=== PATIENT | male | born 1980 | race Caucasian/White ===

== ENCOUNTER 2017-05-27 17:56 | Emergency (ER) | payer BC ==
[~2017-05-27] VITALS: Ht 162.6 cm; Wt 97.1 kg
[~2017-05-27 17:56] MED LIST: CLARITIN10 MG PO; FLONASE NASAL S16 GM NS; PRILOSEC 20MG20 MG PO; PROTONIX40 MG PO
[2017-05-27 17:59] VITALS: BP 142/84; TEMP 98.5
[2017-05-27] MEDS ORDERED: DESYREL 50MG50 MG PO (18:02)
[2017-05-27] MEDS ORDERED: PROTONIX 40MG T40 MG PO (18:03)
[2017-05-27 19:56] VITALS: PULSE 84
== END 2017-05-27 19:58 | disposition home or self-care (01) ==
LOC: COL.ER 17:56
DX: S61.255A Open bite of left ring finger without damage to nail, initial encounter (principal); K21.9 Gastro-esophageal reflux disease without esophagitis; Z23 Encounter for immunization; W55.81XA Bitten by other mammals, initial encounter

== ENCOUNTER 2017-05-30 07:40 | Outpatient (RCR) | payer BC ==
[~2017-05-30 07:40] MED LIST changes: +DESYREL 50MG50 MG PO; +PROTONIX 40MG T40 MG PO
[2017-06-12 07:23] VITALS: BP 150/91; PULSE 98; TEMP 98.9
[2017-08-21] MEDS ORDERED: LUNESTA2 MG PO (20:27)
[2017-08-21] MEDS ORDERED: PREDNISONE20 MG PO ×2 (21:05)
[2017-08-21] MEDS ORDERED: MEDROL 4MG DOSPA4 MG PO (21:29)
== END 2017-09-01 ==
LOC: COL.ER
DX: Z20.3 Contact with and (suspected) exposure to rabies (principal)

== ENCOUNTER 2017-08-21 20:17 | Emergency (ER) | payer BC ==
[~2017-08-21] VITALS: Ht 162.6 cm; Wt 95.5 kg
[2017-08-21 20:23] VITALS: BP 149/96; TEMP 98.9
[2017-08-21] MEDS ORDERED: LUNESTA2 MG PO (20:27)
[2017-08-21] MEDS ORDERED: PREDNISONE20 MG PO ×2 (21:05)
[2017-08-21] MEDS ORDERED: MEDROL 4MG DOSPA4 MG PO (21:29)
[2017-08-21 21:30] VITALS: PULSE 92
== END 2017-08-21 21:30 | disposition home or self-care (01) ==
LOC: COL.ER 20:17
DX: L50.9 Urticaria, unspecified (principal); K21.9 Gastro-esophageal reflux disease without esophagitis
CPT/HCPCS: J2930

== ENCOUNTER 2017-09-12 09:01 | Day surgery (SDC) | payer BC ==
[~2017-09-12] VITALS: Ht 162.6 cm; Wt 98.4 kg
[~2017-09-12 09:01] MED LIST changes: +LUNESTA2 MG PO; +MEDROL 4MG DOSPA4 MG PO; +PREDNISONE20 MG PO
[2017-09-12 09:16] VITALS: BP 145/93; PULSE 75; TEMP 97.8
[2017-09-12 10:45] VITALS: BP 110/86; PULSE 75; TEMP 97.6
[2017-09-12 10:56] VITALS: BP 121/83; PULSE 68
[2017-09-12 11:15] VITALS: BP 120/80; PULSE 70
[2017-09-12 11:30] VITALS: BP 118/91; PULSE 72
[2017-09-12 12:45] VITALS: BP 116/76; PULSE 77
== END 2017-09-12 11:59 | disposition home or self-care (01) ==
LOC: SDCO 09:01
DX: K57.30 Diverticulosis of large intestine without perforation or abscess without bleeding (principal); R19.7 Diarrhea, unspecified; R14.0 Abdominal distension (gaseous); K21.9 Gastro-esophageal reflux disease without esophagitis; G47.33 Obstructive sleep apnea (adult) (pediatric); E66.9 Obesity, unspecified; Z68.33 Body mass index [BMI] 33.0-33.9, adult
CPT/HCPCS: OP; J2704; J7030

== ENCOUNTER 2018-10-30 10:35 | Day surgery (SDC) | payer BC ==
[~2018-10-30] VITALS: Ht 162.6 cm; Wt 90.8 kg
[2018-10-30 11:03] VITALS: BP 121/84; PULSE 76; TEMP 98.3
[2018-10-30] MEDS ORDERED: TOPROL XL 25MG25 MG PO (11:09)
[2018-10-30] MEDS ORDERED: VALIUM 10MG10 MG/TAB PO (11:10)
[2018-10-30 14:00] VITALS: BP 116/74; PULSE 69; TEMP 97.5
--- NOTE | 2018-10-30 14:00 | NUR ---
pt to bay [facility] via cart from endo room, pt walked to chair, call light in reach, in room, pt took drink and muffin
[2018-10-30 14:15] VITALS: BP 117/82; PULSE 76
[2018-10-30 14:30] VITALS: BP 120/78; PULSE 78
[2018-10-30 14:45] VITALS: BP 123/67; PULSE 72
--- NOTE | 2018-10-30 14:45 | NUR ---
iv d'cd intact, pt up in room dressed, Dr Panchal into see pt and
--- NOTE | 2018-10-30 15:20 | NUR ---
DISCHARGE INST. GIVEN TO PT AND ON ACTIVITY, PRECAUTIONS AND FOLLOWUP FOR TEST RESULTS, PT DISCHARGED VIA W/C TO CAR WITH
== END 2018-10-30 15:20 | disposition home or self-care (01) ==
LOC: SDCO 10:35
DX: K21.9 Gastro-esophageal reflux disease without esophagitis (principal); K44.9 Diaphragmatic hernia without obstruction or gangrene; R19.7 Diarrhea, unspecified; R63.4 Abnormal weight loss; K58.0 Irritable bowel syndrome with diarrhea; K57.30 Diverticulosis of large intestine without perforation or abscess without bleeding; K58.9 Irritable bowel syndrome, unspecified; Z79.899 Other long term (current) drug therapy; I10 Essential (primary) hypertension; G47.33 Obstructive sleep apnea (adult) (pediatric)
CPT/HCPCS: J2704

== ENCOUNTER 2019-06-05 11:51 | Emergency (ER) | payer BC ==
[~2019-06-05] VITALS: Ht 160 cm; Wt 97.3 kg
[~2019-06-05 11:51] MED LIST changes: +TOPROL XL 25MG25 MG PO; +VALIUM 10MG10 MG/TAB PO
[2019-06-05 12:00] VITALS: TEMP 99.6
[2019-06-05 12:40] LABS: BASO % 0.2 % (0.0-2.0); EOS # 0.1 (0.0-0.7); EOS % 0.8 % (0-4.0); GRAN # 8.9 (1.4-6.5); GRAN % 79.1 % (42.2-75.2); HEMATOCRIT 42.5 % (42.0-52.0); HEMOGLOBIN 14.6 g/dl (13.5-18.0); LYMPH # 1.1 (1.2-3.4); LYMPH % 10.1 % (20.0-51.0); MEAN CELL VOLUME 91 fl (80.0-100.0); MEAN CORPUSCULAR HEMOGLOBIN 31 pg (27.0-31.0); MEAN CORPUSCULAR HGB CONC 34 g/dl (33.0-37.0); MEAN PLATELET VOLUME 9.1 fl (7.4-10.4); MONO # 1.1 (0.1-0.6); MONO % 9.4 % (1.7-9.3); PLATELET COUNT 232 K/mm3 (130-400); RED BLOOD COUNT 4.65 M/mm3 (4.20-5.60); REDCELL DISTRIBUTION WIDTH-CV 11.6 % (11.5-14.5)
[2019-06-05 12:53] LABS: ALBUMIN 4.2 gm/dL (3.5-5.0); C-REACTIVE PROTEIN 3.4 mg/dL (0.0-0.9); CALCIUM 9.3 mg/dL (8.4-10.2); CREATININE, serum 0.87 (0.66-1.25); POTASSIUM 4.1 mmol/L (3.4-5.0); TOTAL PROTEIN 7.1 gm/dL (6.4-8.2)
[2019-06-05 13:24] LABS: COLLECTION METHOD CLEAN CATCH
[2019-06-05 13:40] LABS: MUCOUS Present /lpf; PH 7 (5-8); SQUAMOUS EPITHELIAL None Seen /hpf; URINE APPEARANCE Clear; URINE BACTERIA None Seen /hpf; URINE BILIRUBIN Negative (NEGATIVE); URINE BLOOD Negative (NEGATIVE); URINE COLOR Yellow; URINE GLUCOSE Negative (NEGATIVE); URINE KETONE Negative (NEGATIVE); URINE LEUKOCYTE ESTERASE Negative (NEGATIVE); URINE NITRATE Negative (NEGATIVE); URINE PROTEIN(semi-quant) Negative (NEGATIVE); URINE RBC 0-2 /hpf; URINE UROBILINOGEN Negative (NEGATIVE)
[2019-06-05] MEDS ORDERED: CIPRO 500MG TA500 MG PO (14:22)
[2019-06-05] MEDS ORDERED: FLAGYL500 MG PO (14:22)
[2019-06-05 14:38] VITALS: BP 108/57; PULSE 89
== END 2019-06-05 14:45 | disposition home or self-care (01) ==
LOC: COL.ER 11:51
PROVIDERS: Nurse Practitioner
DX: K57.92 Diverticulitis of intestine, part unspecified, without perforation or abscess without bleeding (principal); I10 Essential (primary) hypertension; K21.9 Gastro-esophageal reflux disease without esophagitis; K58.9 Irritable bowel syndrome, unspecified
CPT/HCPCS: J1885; J7030; Q9967

== ENCOUNTER 2019-11-30 08:06 | Emergency (ER) | payer BC ==
[~2019-11-30] VITALS: Ht 160 cm; Wt 100.0 kg
[~2019-11-30 08:06] MED LIST changes: +CIPRO 500MG TA500 MG PO; +FLAGYL500 MG PO
[2019-11-30 08:19] VITALS: BP 149/89; TEMP 98.3
[2019-11-30 09:40] VITALS: PULSE 72
== END 2019-11-30 09:40 | disposition home or self-care (01) ==
LOC: COL.ER 08:06
DX: T78.40XA Allergy, unspecified, initial encounter (principal); L50.9 Urticaria, unspecified; I10 Essential (primary) hypertension; K57.90 Diverticulosis of intestine, part unspecified, without perforation or abscess without bleeding; Z79.899 Other long term (current) drug therapy
CPT/HCPCS: J2930

== ENCOUNTER 2024-03-08 12:11 | Emergency (ER) | payer OTHER ==
[~2024-03-08] VITALS: Ht 162.6 cm; Wt 106.8 kg
[2024-03-08 12:16] VITALS: TEMP 98.8
[2024-03-08 13:31] LABS: ALANINE AMINOTRANSFERASE 38 U/L (0-55); ALBUMIN 4.6 g/dL (3.5-5.0); ALKALINE PHOSPHATASE 64 U/L (40-150); ANION GAP 12 mmol/L (7-16); AST,SGOT 21 U/L (5-34); BILIRUBIN,TOTAL 0.5 mg/dL (0.2-1.2); BLOOD UREA NITROGEN 17 mg/dL (9-21); CALCIUM 9.7 mg/dL (8.4-10.2); CHLORIDE 106 mEq/L (98-107); CREATININE, serum 1.06 mg/dL (0.72-1.25); GLUCOSE 93 mg/dL (70-99); POTASSIUM 4.3 mEq/L (3.5-4.5); SODIUM 139 mEq/L (136-145); TOTAL PROTEIN 7.7 g/dl (6.2-8.1)
[2024-03-08 13:34] LABS: BASO # 0.1 K/mm3 (0.0-0.2); BASO % 0.8 % (0.0-2.0); EOS # 0.2 K/mm3 (0.0-0.7); EOS % 2.2 % (0.0-4.0); GRAN # 4.1 K/mm3 (1.4-6.5); GRAN % 56.5 % (42.2-75.2); HEMATOCRIT 48.5 % (42.0-52.0); HEMOGLOBIN 16.3 g/dl (13.5-18.0); LYMPH # 2.2 K/mm3 (1.2-3.4); LYMPH % 29.7 % (20.0-51.0); MEAN CELL VOLUME 91 fl (80.0-100.0); MEAN CORPUSCULAR HEMOGLOBIN 31 pg (27-31); MEAN CORPUSCULAR HGB CONC 34 g/dl (33.0-37.0); MEAN PLATELET VOLUME 10.2 fl (7.4-10.4); MONO # 0.8 K/mm3 (0.1-0.6); MONO % 10.5 % (1.7-9.3); RED BLOOD COUNT 5.33 M/mm3 (4.20-5.60); REDCELL DISTRIBUTION WIDTH-CV 11.6 % (11.5-14.5)
[2024-03-08 13:37] LABS: PLATELET COUNT 296 K/mm3 (130-400)
[2024-03-08 13:51] LABS: TROPONIN-I < 0.010 ng/mL (0.00-0.033)
[2024-03-08 14:15] VITALS: O2SAT 95
[2024-03-08 16:19] VITALS: BP 124/84; PULSE 75
== END 2024-03-08 16:19 | disposition home or self-care (01) ==
LOC: COL.ER 12:11
PROVIDERS: Personal Emergency Response Attendant
DX: R00.2 Palpitations (principal); R42 Dizziness and giddiness; Z79.899 Other long term (current) drug therapy

== ENCOUNTER 2024-03-19 10:50 | Emergency (ER) | payer OTHER ==
[~2024-03-19] VITALS: Ht 162.6 cm; Wt 106.8 kg
[2024-03-19 10:57] VITALS: TEMP 98.1
[2024-03-19 13:41] LABS: BASO % 0.6 % (0.0-2.0); EOS # 0.2 K/mm3 (0.0-0.7); EOS % 2.5 % (0.0-4.0); GRAN # 4.3 K/mm3 (1.4-6.5); GRAN % 60.4 % (42.2-75.2); HEMATOCRIT 48.9 % (42.0-52.0); HEMOGLOBIN 16.8 g/dl (13.5-18.0); LYMPH # 1.8 K/mm3 (1.2-3.4); LYMPH % 25.4 % (20.0-51.0); MEAN CELL VOLUME 90 fl (80.0-100.0); MEAN CORPUSCULAR HEMOGLOBIN 31 pg (27-31); MEAN CORPUSCULAR HGB CONC 34 g/dl (33.0-37.0); MEAN PLATELET VOLUME 9.8 fl (7.4-10.4); MONO # 0.8 K/mm3 (0.1-0.6); MONO % 10.7 % (1.7-9.3); PLATELET COUNT 314 K/mm3 (130-400); RED BLOOD COUNT 5.42 M/mm3 (4.20-5.60); REDCELL DISTRIBUTION WIDTH-CV 11.5 % (11.5-14.5)
[2024-03-19 13:53] LABS: ALANINE AMINOTRANSFERASE 41 U/L (0-55); ALBUMIN 4.7 g/dL (3.5-5.0); ALKALINE PHOSPHATASE 65 U/L (40-150); ANION GAP 10 mmol/L (7-16); AST,SGOT 23 U/L (5-34); BILIRUBIN,TOTAL 0.6 mg/dL (0.2-1.2); BLOOD UREA NITROGEN 17 mg/dL (9-21); CALCIUM 9.8 mg/dL (8.4-10.2); CHLORIDE 105 mEq/L (98-107); GLUCOSE 99 mg/dL (70-99); POTASSIUM 4.1 mEq/L (3.5-4.5); SODIUM 139 mEq/L (136-145)
[2024-03-19 13:58] LABS: TROPONIN-I < 0.010 ng/mL (0.00-0.033)
[2024-03-19 14:20] VITALS: BP 109/67; PULSE 77
== END 2024-03-19 14:20 | disposition home or self-care (01) ==
LOC: COL.ER 10:50
PROVIDERS: Nurse Practitioner
DX: R07.9 Chest pain, unspecified (principal)

== ENCOUNTER → 2024-03-31 | Outpatient (CLI) | payer OTHER | LOC: COL.VAS 08:57 | DX: R00.2 Palpitations (principal) ==

== ENCOUNTER 2024-04-28 17:16 | Emergency (ER) | payer OTHER ==
[~2024-04-28] VITALS: Ht 162.6 cm; Wt 106.8 kg
[2024-04-28 17:19] VITALS: TEMP 98.3
[2024-04-28 19:08] LABS: BASO # 0.1 K/mm3 (0.0-0.2); BASO % 0.6 % (0.0-2.0); EOS # 0.2 K/mm3 (0.0-0.7); EOS % 2.9 % (0.0-4.0); GRAN # 5.5 K/mm3 (1.4-6.5); GRAN % 66.7 % (42.2-75.2); HEMATOCRIT 46.7 % (42.0-52.0); HEMOGLOBIN 16.1 g/dl (13.5-18.0); LYMPH # 1.7 K/mm3 (1.2-3.4); LYMPH % 21.2 % (20.0-51.0); MEAN CELL VOLUME 90 fl (80.0-100.0); MEAN CORPUSCULAR HEMOGLOBIN 31 pg (27-31); MEAN CORPUSCULAR HGB CONC 35 g/dl (33.0-37.0); MEAN PLATELET VOLUME 9.4 fl (7.4-10.4); MONO # 0.7 K/mm3 (0.1-0.6); MONO % 8.2 % (1.7-9.3); PLATELET COUNT 267 K/mm3 (130-400); RED BLOOD COUNT 5.21 M/mm3 (4.20-5.60); REDCELL DISTRIBUTION WIDTH-CV 11.5 % (11.5-14.5)
[2024-04-28 19:27] LABS: ALANINE AMINOTRANSFERASE 28 U/L (0-55); ALBUMIN 4.3 g/dL (3.5-5.0); ALKALINE PHOSPHATASE 65 U/L (40-150); ANION GAP 11 mmol/L (7-16); AST,SGOT 17 U/L (5-34); BILIRUBIN,TOTAL 0.5 mg/dL (0.2-1.2); BLOOD UREA NITROGEN 15 mg/dL (9-21); CALCIUM 9.9 mg/dL (8.4-10.2); CHLORIDE 107 mEq/L (98-107); CREATININE, serum 1.04 mg/dL (0.72-1.25); GLUCOSE 98 mg/dL (70-99); LIPASE 31 U/L (8-78); POTASSIUM 3.9 mEq/L (3.5-4.5); SODIUM 141 mEq/L (136-145); TOTAL PROTEIN 7.4 g/dl (6.2-8.1)
[2024-04-28 19:33] LABS: TROPONIN-I < 0.010 ng/mL (0.00-0.033)
[2024-04-28] MEDS ORDERED: Iohexol 300 - 100 ML VIAL IV ONE (20:24)
[2024-04-28] MEDS ORDERED: NS 100 ML IV ONE (20:25)
[2024-04-28] MEDS ORDERED: Ketorolac 30 MG/ML VIAL IV ONE (21:00)
[2024-04-28 21:40] VITALS: BP 128/81; PULSE 68
== END 2024-04-28 21:40 | disposition home or self-care (01) ==
LOC: COL.ER 17:16
PROVIDERS: Nurse Practitioner Primary Care
DX: R07.9 Chest pain, unspecified (principal); Z79.82 Long term (current) use of aspirin
CPT/HCPCS: J1885; Q9967

== ENCOUNTER 2024-05-11 09:09 | Day surgery (SDC) | payer OTHER ==
[~2024-05-11] VITALS: Ht 162.6 cm; Wt 107.1 kg
[2024-05-11] VITALS (12 sets, daily range): BP systolic 135–177; BP diastolic 79–116; PULSE 70–85; TEMP 98.3
[2024-05-11] MEDS ORDERED: CARDIZEM120 MG PO (09:28)
[2024-05-11] MEDS ORDERED: 1/2 NS 1,000 ML IV SCH (09:30)
[2024-05-11 10:09] LABS: HEMATOCRIT 44.9 % (42.0-52.0); HEMOGLOBIN 15.9 g/dl (13.5-18.0); MEAN CELL VOLUME 88 fl (80.0-100.0); MEAN CORPUSCULAR HEMOGLOBIN 31 pg (27-31); MEAN CORPUSCULAR HGB CONC 35 g/dl (33.0-37.0); MEAN PLATELET VOLUME 9.2 fl (7.4-10.4); PLATELET COUNT 291 K/mm3 (130-400); RED BLOOD COUNT 5.09 M/mm3 (4.20-5.60); REDCELL DISTRIBUTION WIDTH-CV 11.2 % (11.5-14.5)
[2024-05-11 10:20] LABS: CALCIUM 9.7 mg/dL (8.4-10.2); CREATININE, serum 0.94 mg/dL (0.72-1.25); POTASSIUM 4.4 mEq/L (3.5-4.5)
[2024-05-11 10:27] LABS: INR 0.9 (0.8-3.0); PROTHROMBIN TIME 10.4 SECONDS (9.7-12.8)
[2024-05-11 10:29] LABS: PARTIAL THROMBOPLASTIN TIME 29.2 SECONDS (26.0-37.0)
[2024-05-11] MEDS ORDERED: Verapamil 2.5 MG/ML 2 ML VIAL IA SCH (11:16)
[2024-05-11] MEDS ORDERED: Nitroglycerin 100 MCG/ML (Cath Lab) 10 ML VIAL IA SCH (11:17)
[2024-05-11] MEDS ORDERED: Heparin 1,000 UNITS/ML 10 ML Multi-Dose VIAL IV SCH (11:18)
--- NOTE | 2024-05-11 11:23 | NUR ---
See [facility]ge report for procedural sedation/notes
[2024-05-11] MEDS ORDERED: fentaNYL 50 MCG/ML 2 ML VIAL IV SCH (11:34)
[2024-05-11] MEDS ORDERED: Midazolam 2 MG/2 ML VIAL IV SCH (11:35)
[2024-05-11] MEDS ORDERED: Iohexol 350 - 100 ML VIAL INCOR ONE (11:39)
--- NOTE | 2024-05-11 16:19 | NUR ---
PT TOLERATED RECOVERY PERIOD WELL. VS REMAINED WITHIN NORMAL LIMITS. PT'S RIGHT FEMORAL DRESSING REMAINED CLEAN DRY AND INTACT. RIGHT FEMORAL SITE REMAINED FREE FROM SIGNS OF BLEEDING AND HEMATOMA. PT VERBALIZED UNDERSTANDING OF DISCHARGE INSTRUCTIONS. IV DISCONTINUED. PT ASSISTED TO MAIN LOBBY VIA WHEELCHAIR.
== END 2024-05-11 16:21 | disposition home or self-care (01) ==
LOC: COL.CAR 09:09
PROVIDERS: Internal Medicine Cardiovascular Disease
DX: R07.89 Other chest pain (principal); I10 Essential (primary) hypertension; R94.31 Abnormal electrocardiogram [ECG] [EKG]; E66.01 Morbid (severe) obesity due to excess calories; Z68.41 Body mass index [BMI] 40.0-44.9, adult; Z79.899 Other long term (current) drug therapy
CPT/HCPCS: C1760; C1894; J1644; J2250; J3010; Q9967